=== PATIENT | female | born 1990 | race Caucasian/White ===

== ENCOUNTER 2017-07-05 13:39 | Emergency (ER) | END 2017-07-05 17:27 | disposition home or self-care (01) ==

== ENCOUNTER 2017-11-12 07:29 | Emergency (ER) | END 2017-11-12 09:38 | disposition home or self-care (01) ==

== ENCOUNTER 2018-05-02 23:49 | Inpatient (IN) | payer MEDICAID ==
[~2018-05-02] VITALS: Ht 152.4 cm; Wt 98.3 kg
[~2018-05-02 23:49] MED LIST: CEPH-443 PO; FER325 PO; PREN-39 PO
[2018-05-03] VITALS: Ht 152.4 cm; Wt 98.3 kg
[2018-05-03 00:04] VITALS: BP 130/83; PULSE 95; RESP 18
--- NOTE | 2018-05-03 00:43 | HP ---
Date/Time of Note Date/Time of Note DATE: 05/03/18 TIME: 00:42 OB - History Hx of Present Chief Complaint: Contractions and SROM Estimated Due Date: May 11, 2018 : 4 Para: 3 Spontaneous : 0 Therapeutic : 0 Care: Other (records not available) Ultrasounds: Other Obstetrical Complications: None Medical Complications: None Past Family/Social History * Past Medical, Surgical, Family and Obstetric Histories reviewed from chart. GBS Status: Negative OB Admission Exam Physical Exam HEENT: WNL Heart: Rhythm Normal Lungs: Clear, Equal Abdomen: WNL Extremities: Normal Reflexes: Normal Cervical Dilatation: 3cm Effacement: 75% Station: -1 Membranes: Ruptured Amniotic Fluid: Clear Heart Rate: 120's Accelerations: Accelerations Present Decelerations: No Decelerations Varibility: Moderate OB Assessment/Plan Reason for admission: active labor, rupture of membranes Plan: Expectant Management NU RUSSELL MD May 03, 2018 00:43
[2018-05-03] MEDS: LACTATED RINGER'S 1,000 ML IV SCH ×2 (00:44→02:07)
[2018-05-03] MEDS ORDERED: LACTATED RINGER'S 1,000 ML IV PRN (00:44)
[2018-05-03] MEDS ORDERED: BUTORPHANOL 2 MG INJ IV PRN (01:00)
[2018-05-03] MEDS ORDERED: MISOPROSTOL 200 MCG TAB PR PRN ×2 (01:00→08:30)
[2018-05-03] MEDS ORDERED: LIDOCAINE 1% (MPF) 30 ML INJ INJ PRN (01:00)
[2018-05-03] MEDS ORDERED: METHYLERGONOVINE 0.2 MG INJ IM PRN ×2 (01:00→08:30)
[2018-05-03] MEDS ORDERED: OXYTOCIN 30 UNITS/LR 500 ML IV PRN (01:00)
[2018-05-03] MEDS ORDERED: CARBOPROST 250 MCG INJ IM PRN ×2 (01:00→08:30)
[2018-05-03] MEDS ORDERED: IBUPROFEN 600 MG TAB PO PRN (01:00)
[2018-05-03] MEDS ORDERED: OXYTOCIN 30 UNITS/LR 500 ML IV SCH ×2 (01:00)
[2018-05-03] MEDS ORDERED: FENTAnyl 2MCG/ML-ROPIV 0.2% 100 ML ONE (01:47)
--- NOTE | 2018-05-03 02:21 | PREAC ---
Date/Time of Note Date/Time of Note DATE: 05/03/18 TIME: 02:20 Anesthesia Eval and Record Evaluation Time Pre-Procedure Interview DATE: 05/03/18 TIME: 02:20 Age 28 Sex female NPO: 8 hrs Preoperative diagnosis IUP Planned procedure L&D Past Medical History Past Medical History: None Surgery & Anesthesia Issues No known issue Meds Anticoagulation: No Beta Chris within 24 hr: No Reason Beta Chris not given: Pt. not on B-Chris Reported Medications Vits W-Ca,Fe,Fa(<1MG) ( Vitamins) 1 Tab Tablet, PO DAILY 02/26/11 Discontinued Reported Medications Ferrous Sulfate* (Ferrous Sulfate*) 325 Mg Tabec, 325 MG PO BID, TAB 10/23/15 Discontinued Scripts Cephalexin* (Keflex*) 500 Mg Capsule, 500 MG PO QID for 7 Days, CAP Prov:YASMINE SANCHEZ PA-C 11/12/17 Current Medications Lactated Ringer's 1,000 ml @ 125 mls/hr Q8H IV Last administered on 05/03/18at 02:07; Admin Dose 125 MLS/HR; Start 05/03/18 at 00:44 Butorphanol Tartrate (Stadol) 2 mg Q2H PRN IV PAIN; Start 05/03/18 at 01:00 Lidocaine (Xylocaine 1% (Mpf)) 30 ml ONCE PRN INJ DELIVERY; Start 05/03/18 at 01:00 Oxytocin/Lactated Ringer's 500 ml @ 500 mls/hr ONCE POST IV ; Start 05/03/18 at 01:00 Oxytocin/Lactated Ringer's 500 ml @ 125 mls/hr POST IV ; Start 05/03/18 at 01:00 Ibuprofen (Motrin) 600 mg ONCE PRN PO PAIN; Start 05/03/18 at 01:00 Lactated Ringer's 1,000 ml @ 2,000 mls/hr Q30M PRN IV EPIDURAL BOLUS Last administered on 05/03/18at 01:13; Admin Dose 2,000 MLS/HR; Start 05/03/18 at 00:44 Oxytocin/Lactated Ringer's 500 ml @ 0 mls/hr ONCE PRN IV PPH; Start 05/03/18 at 01:00 Methylergonovine Maleate (Methergine) 0.2 mg ONCE PRN IM PPH; Start 05/03/18 at 01:00 Carboprost Tromethamine (Hemabate) 250 mcg ONCE PRN IM PPH; Start 05/03/18 at 01:00 Misoprostol (Cytotec) 1,000 mcg ONCE PRN AK PPH; Start 05/03/18 at 01:00 Meds reviewed: Yes Allergies Coded Allergies: No Known Allergy (Unverified , 05/03/18) Allergies Reviewed: Yes Labs/Studies Labs Reviewed: Reviewed by anesthesiologist Result Diagram: 05/03/18 0100 Laboratory Tests 05/03/18 01:00 Blood Bank Test 05/03/18 01:00 Blood Type O POSITIVE Rh Immune Globulin Candidate NO test: Positive Studies: ECG Pre-procedure Exam Last vitals Vital Signs Date Temp Pulse Resp B/P (MAP) Pulse Ox O2 O2 Flow FiO2 Time Delivery Rate 05/03/18 98.3 95 18 130/83 Room Air 00:04 (99) Airway: Adequate mouth opening, Adequate thyromental dist Mallampati: Mallampati II Teeth: Normal Lung: Normal Heart: Normal ASA Physical Status ASA physical status: 2 Emergency: None Planned Anesthetic Neuraxial: Epidural Pre-operative Attestations Prior to commencing anesthesia and surgery, the patient was re-evaluated, there was verification of: *The patient's identity *The results of appropriate recent lab work and preoperative vital signs *The above evaluation not changing prior to induction *Anesthetic plan, risk benefits, alternative and complications discussed with patient/family; questions answered; patient/family understands, accepts and wishes to proceed. LAMBERTO MILLAN MD May 03, 2018 02:21
[2018-05-03] MEDS ORDERED: DIPHENHYDRAMINE 50 MG INJ IV PRN (02:30)
[2018-05-03] MEDS ORDERED: FENTAnyl 2MCG/ML-ROPIV 0.2% 100 ML BAG EPI SCH (02:30)
[2018-05-03] MEDS ORDERED: NALOXONE (0.4 MG/ML) INJ IV PRN (02:30)
[2018-05-03] MEDS ORDERED: ONDANSETRON 4 MG INJ IV PRN (02:30)
--- NOTE | 2018-05-03 02:53 | TRIAGE ---
OB Triage Datetime Report Generated by CPN: 05/03/2018 02:53 Datetime: 05/03/2018 02:30 Vaginal Exam Dilatation (cms): 8.0 Effacement (%): 100 Station: -1 Exam By: EM Vaginal Bleeding: Normal Show Cervix, Consistency: Soft Cervix, Position: Midposition Presentation 'A': Cephalic Datetime: 05/03/2018 01:28 Stage of : Labor Assessment Type: Admission Assessment Vaginal Bleeding: None Maternal Assessment Level of Consciousness: Fully Conscious DTR's/Clonus: DTRs 2+; No Clonus Headache: Denies Blurred Vision: No Respiratory Effort: Unlabored; Regular Rhythm; Equal Expansion Breath Sounds, Left: Clear and Equal Breath Sounds, Right: Clear and Equal Nausea/Vomiting: Denies RUQ Epigastric Pain: Denies Lower Extremities Edema: None Degree: None Upper Extremities Edema: None Degree: None Facial Edema: None Fall Risk Assessment History of Falling: (0) No Secondary Diagnosis: (0) No Ambulatory Aid: (0) Bedrest/Nurse Assist IV Therapy: (20) Yes Gait: (0) Normal/Bedrest/Immobile Mental Status: (0) Oriented to Own Ability Fall Score: 20 Fall Risk Score Definition: No Risk: No action required Labor Evaluation Frequency: 4-6 Duration (sec)2399: 60-90 Quality: Strong Pattern: Normal: <= 5 Contractions in 10 Minutes Resting Tone [place]: Relaxed Heart Rate FHR Baseline Rate: 145 Variability: Moderate 6-25 bpm Accelerations: 15X15 Decelerations: None Category: Category I Pain Assessment Pain Scale: 10 Pain Presence: Intermittent Pain Type: Contraction Pain Location: Abdomen Pain Goal: 4 Membrane Status: Ruptured Datetime: 05/03/2018 01:17 Labor Evaluation Frequency: 3-6 Monitor Mode: External Duration (sec)2399: 60-120 Quality: Moderate Pattern: Normal: <= 5 Contractions in 10 Minutes Resting Tone [place]: Relaxed Heart Rate FHR Baseline Rate: 145 Monitor Mode: External US Variability: Moderate 6-25 bpm Accelerations: 15X15 Decelerations: None Category: Category I Datetime: 05/03/2018 00:49 Monitor Mode: External US Datetime: 05/03/2018 00:30 Labor Evaluation Frequency: 3-6 Monitor Mode: External Duration (sec)2399: 70-130 Quality: Moderate Pattern: Normal: <= 5 Contractions in 10 Minutes Resting Tone [place]: Relaxed Heart Rate FHR Baseline Rate: 135 Monitor Mode: External US Variability: Moderate 6-25 bpm Accelerations: 15X15 Decelerations: None Category: Category I Datetime: 05/03/2018 00:29 Monitor Mode: External US Datetime: 05/03/2018 00:12 Time of Arrival: 05/03/2018 01:10 EGA: 38.6 Arrived By: Wheelchair Arrived From: Emergency Dept Datetime: 05/03/2018 00:08 Stage of : OB Triage Vaginal Exam Dilatation (cms): 3.0 Effacement (%): 70 Station: -2 Exam By: LAURO Wilson RN Membrane Status: Ruptured Membranes Rupture Method: Spontaneous Amniotic Fluid Color: Clear Amniotic Fluid Amount: Small Amniotic Fluid Odor: Normal Pool: Positive Cervix, Consistency: Soft Cervix, Position: Posterior Presentation 'A': Cephalic Datetime: 05/03/2018 00:04 Stage of : OB Triage Assessment Type: Triage Maternal Assessment Level of Consciousness: Fully Conscious DTR's/Clonus: DTRs 2+; No Clonus Headache: Denies Blurred Vision: No Respiratory Effort: Unlabored; Regular Rhythm; Equal Expansion Breath Sounds, Left: Clear and Equal Breath Sounds, Right: Clear and Equal Nausea/Vomiting: Denies RUQ Epigastric Pain: Denies Lower Extremities Edema: None Degree: None Upper Extremities Edema: None Degree: None Facial Edema: None Temperature Route: Oral Fall Risk Assessment History of Falling: (0) No Secondary Diagnosis: (0) No Ambulatory Aid: (0) Bedrest/Nurse Assist IV Therapy: (0) No Gait: (0) Normal/Bedrest/Immobile Mental Status: (0) Oriented to Own Ability Fall Score: 0 Fall Risk Score Definition: No Risk: No action required Pain Assessment Pain Scale: 10 Pain Presence: Intermittent Pain Type: Contraction; Pressure Pain Location: Abdomen; Back; Perineum Pain Goal: 2 Pain Relief Measures: Comfort Measures Datetime: 05/02/2018 23:46 Time of Arrival: 05/02/2018 23:46 Arrived By: Wheelchair Arrived From: Emergency Dept Chief Complaint: UC, pain 01/18, SROM @ 2330 Movement: Present Contractions: Regular Time Contractions Began: 05/02/2018 17:00 Contractions: 3-5 minutes Rupture of Membranes: Ruptured Vaginal Bleeding: Normal Show Vaginal Discharge: Present Recent Sexual Intercouse: Denies Abdominal Trauma: Not Applicable Patient Complaints: Contractions Time Provider Notified: 05/03/2018 00:20 Provider Notified: DREW Initial Plan: ANKITA CALLEJAS
--- NOTE | 2018-05-03 06:06 | LDN ---
Date/Time of Note Date/Time of Note DATE: 05/03/18 TIME: 06:04 Delivery Summary Weeks of Gestation 38 weeks and 6 days Placenta Delivered: Spontaneously Meconium: none Episiotomy: No Perineal laceration: 0 Anesthesia type: Epidural Estimated blood loss: 150 Sponge & Needle done & correct: Yes All needle counts correct: Yes Any foreign bodies felt in the: No Infant Delivery Information Sex Sex: male Apgars 1 Minute: 8 5 Minute: 9 Suctioning Nose & mouth suctioned at roxana: Yes Delee suction performed: No Umbilical Cord Umbilical cord with: 3 Vessels Cord presentations: nuchal cord Nuchal cord present X: 1 Cord Blood was obtained: Yes Mother & Baby Disposition Disposition Mom & Baby to Maternity; Good: Yes NU RUSSELL MD May 03, 2018 06:06
[2018-05-03 07:45] VITALS: BP 106/57; PULSE 100; RESP 18
--- NOTE | 2018-05-03 07:45 | NUR ---
ORIENTATED TO ROOM AND FLOOR POLICIES. PATIENT DOES UNDERSTAND SOME SCOTTISH. ADVISED THAT IF SHE DOES NOT UNDERSTAND SOMETHING THAT I SAY WE WILL BRING IN THE TRNASLATER
[2018-05-03] MEDS ORDERED: ACETAMINOPHEN 325 MG TAB PO PRN (08:30)
[2018-05-03] MEDS ORDERED: HYDROCODONE/APAP (5/325) TAB PO PRN (08:30)
[2018-05-03] MEDS ORDERED: WITCH HAZEL/GLYCERIN PAD PR PRN (08:30)
[2018-05-03] MEDS: SENNA/DOCUSATE NA (8.6MG/50MG) TAB PO SCH ×2 (09:16→21:13)
[2018-05-03] MEDS: LACTATED RINGER'S 1,000 ML IV* SCH ×2 (10:06→19:00)
--- NOTE | 2018-05-03 10:30 | NUR ---
UP TO VOID 600CC. IJEOMA CARE DONE , PADS AND TUCKS APPLIED
[2018-05-03 12:00] VITALS: BP 110/66; PULSE 88; RESP 18
[2018-05-03] MEDS: IBUPROFEN 600 MG TAB PO SCH ×2 (12:43→17:36)
[2018-05-03 16:20] VITALS: BP 101/56; PULSE 90; RESP 18
--- NOTE | 2018-05-03 18:00 | NUR ---
EOSS; CONDITION IS STABLE. IV INFUSED AND DISCONTINUED. VOIDING IN GOOD AMOUNTS, FUNDUS IS FIRM NO EXCESSIVE BLEEDING. MOTRIN EFFECTIVE FOR PAIN RELIEF. BONDING WELL WITH BABY AND FAMILY
--- NOTE | 2018-05-03 19:24 | NUR ---
CONTINUE TO DO ACCUCKECKS AC AND HS
[2018-05-03 19:48] VITALS: BP 108/59; PULSE 87; RESP 18
[2018-05-04] MEDS: IBUPROFEN 600 MG TAB PO SCH ×5 (00:09→23:19)
[2018-05-04 04:23] VITALS: BP 102/59; PULSE 92; RESP 18
--- NOTE | 2018-05-04 05:12 | NUR ---
EOSS: VITAL SIGNS STABLE. NO ACUTE DISTRESS. AMBULATING AND VOIDING WELL. FUNDUS IS FIRM. WELL WITH GOOD LATCH. CBC FOR TODAY IN AM. BONDING WELL WITH BABY.
[2018-05-04 07:30] VITALS: BP 84/47; PULSE 80; RESP 18
[2018-05-04] MEDS: SENNA/DOCUSATE NA (8.6MG/50MG) TAB PO SCH ×2 (08:25→20:46)
[2018-05-04] MEDS ORDERED: LANOLIN HPA 1 PKT TOP PRN (08:30)
--- NOTE | 2018-05-04 12:36 | PN ---
Date/Time of Note Date/Time of Note DATE: 05/04/18 TIME: 12:34 OB Subjective Subjective Subjective Patient complains of discomfort in the pole and breast-feeding. Denies any f ever or chills. Denies any erythema. Denies any bleeding from the nipple. Vaginal bleeding decreased. Denies any other complaint. OB Objective Objective Objective Appearance: Alert and oriented x4 does not appear to be in any acute distress Abdomen: Soft, fundus firm and palpable below the umbilicus and nontender Breast: No evidence of mastitis or fissure. Extremities: No calf tenderness, no click no edema Hemoglobin A1c: 5.7 Laboratory Tests Test 05/03/18 01:00 05/03/18 18:07 05/03/18 21:58 05/04/18 06:30 White Blood 10.9 10^3/ul 13.1 10^3/ul Count Red Blood Count 4.88 10^6/ul 4.08 10^6/ul Hemoglobin 11.8 g/dl 10.0 g/dl Hematocrit 36.9 % 32.2 % Mean Corpuscular 75.6 fl 78.9 fl Volume Mean Corpuscular 24.2 pg 24.5 pg Hemoglobin Mean Corpuscular 32.0 g/dl 31.1 g/dl Hemoglobin Bisi nt Red Cell 14.1 % 14.5 % Distribution Width Platelet Count 245 10^3/UL 225 10^3/UL Mean Platelet 10.7 fl 10.6 fl Volume Immature 0.500 % 0.800 % Granulocytes % Neutrophils % 69.8 % 63.4 % Lymphocytes % 20.4 % 27.2 % Monocytes % 7.6 % 6.3 % Eosinophils % 1.5 % 2.0 % Basophils % 0.2 % 0.3 % Nucleated Red 0.0 /100WBC 0.0 /100WBC Blood Cells % Immature 0.060 10^3/ul 0.110 10^3/ul Granulocytes # Neutrophils # 7.6 10^3/ul 8.3 10^3/ul Lymphocytes # 2.2 10^3/ul 3.6 10^3/ul Monocytes # 0.8 10^3/ul 0.8 10^3/ul Eosinophils # 0.2 10^3/ul 0.3 10^3/ul Basophils # 0.0 10^3/ul 0.0 10^3/ul Nucleated Red 0.0 10^3/ul 0.0 10^3/ul Blood Cells # Prothrombin Time 11.7 Sec Prothrombin Time 0.9 Ratio INR 0.85 International Normalized Ratio Activated 25.8 Sec Partial Thrombop last Time Glucose Level 95 mg/dl Rapid Plasma NONREACTIVE Reagin Hepatitis B NEGATIVE Surface Antigen Bedside Glucose 110 mg/dL 108 mg/dL Hemoglobin A1c 5.7 % Test 05/04/18 06:43 05/04/18 08:23 Lab Scanned REFERENCE Report LAB [id number] Bedside Glucose 80 mg/dL OB Assessment/Plan Other Assessment: status post day #1 Doing well Mild anemia, asymptomatic, Hemoglobin A1c within normal limits. Blood sugars in normal range. can stop blood sugar monitoring Anticipate DC home tomorrow Follow-up at 6 weeks after discharge from the hospital with primary OB If had a GDM, needs to repeat glucose tolerance test 75 mg at 6 weeks . Routine care FANY LUCIA MD May 04, 2018 12:36
[2018-05-04 16:08] VITALS: BP 110/64; PULSE 101; RESP 18
--- NOTE | 2018-05-04 17:51 | NUR ---
EOSS: VSS. AMBULATING AND VOIDING. SHOWERED TODAY. BREAST FEEDING WELL. GOOD BONDING SEEN WITH THE BABY.
[2018-05-04 20:15] VITALS: BP 123/66; PULSE 91; RESP 18
[2018-05-05 04:00] VITALS: BP 100/59; PULSE 88; RESP 18
--- NOTE | 2018-05-05 05:15 | NUR ---
EOSS: VITALS SIGNS STABLE. AMBULATING WELL. FUNDUS FIRM. BONDING WELL WITH BABY.
[2018-05-05] MEDS: IBUPROFEN 600 MG TAB PO SCH ×2 (05:59→11:20)
[2018-05-05 07:50] VITALS: BP 113/77; PULSE 75; RESP 18
[2018-05-05] MEDS ORDERED: DIPHTH/TET/ACEL PERTUSS (ADULT) 0.5 ML VIAL IM* ONE (09:00)
[2018-05-05] MEDS: SENNA/DOCUSATE NA (8.6MG/50MG) TAB PO SCH (09:12)
--- NOTE | 2018-05-05 12:57 | DS ---
Date/Time of Note Date/Time of Note DATE: 05/05/18 TIME: 12:55 Obstetrical Discharge Record Final Diagnosis Final Diagnosis: Term delivered Vaginal Delivery Obstetrical Delivery: Spontaneous Complications Augmentation: No Induction: No Rupture of Membranes: No Condition on Discharge Physical Assessment Last Vitals: VSS afebrile Voiding: Yes Bowel Movement: Yes Breast: Soft, non-tender Fundus: Firm Abdomen and Incision: n/a Episiotomy: n/a Calf Tenderness: No Patient Condition: Stable MOISÉS OBRIEN MD May 05, 2018 12:57
--- NOTE | 2018-05-05 12:59 | PD.PPDC ---
SALES SUPPORT ENGINEER Discharge Instruction Diagnosis [id number] Final Diagnosis: [id number] s/p Condition [id number] Patient Condition: Pchlw5f Stable Diet [id number] Diet: Flmem5z Resume Regular Diet Activity/Restrictions [id number] Activity: [id number] May Shower Idhzs2In Restrictions: [id number] No Lifting No Sexual Activity Nothing in the Vagina No [place] No Tampons, douche Follow-up Follow-up with Physician: 2, Week/Weeks Return to clinic for [id number] WARRANT CLERK Instructions: [id number] Fever greater than 101 Chills Worsening abdominal pain Excessive Vaginal Bleeding More than 2 pads per hour Unable to tolerate diet Nmiem3Yo OB Instructions: Jryln4n Breast Tenderness Depression Blurried Vision Headache MOISÉS OBRIEN MD May 05, 2018 12:59
--- NOTE | 2018-05-05 14:00 | NUR ---
Diabetes Education Referral: Pt's BG has no been over 110 mg/dl this admission. Pt denies having GDM during her other pregnancies or being told she had GDM this . After reviewing prenatals, pt's history and current BG I feel the value of an HbA1c of 12% was incorrect. On the same day as the HbA1c was drawn, the 1 hr OGTT was 88 mg/dl.
--- NOTE | 2018-05-05 15:13 | NUR ---
PT DC'D HOME IN STABLE COND WITH BABY VIA WHEELCHAIR. DISCHARGE INST GIVEN AND ALL QUESTIONS ANSWERED AND PT VERBALIZED UNDERSTANDING OF ALL INFO GIVEN. Addendum: 05/05/18 at 1514 by CORY GRESHAM RN Amended: Links added.
== END 2018-05-05 14:55 | disposition home or self-care (01) | DRG 807 ==
LOC: L-D 23:49 → OBT 23:49 → L-D 05-03 01:10 → OBT 05-03 01:10 → PP1 05-03 07:36
PROVIDERS: ADMIT Obstetrics & Gynecology; ATTEND Obstetrics & Gynecology
PROC: 10E0XZZ Delivery of Products of Conception, External Approach (ICD-10-PCS; principal; 2018-05-03)
DX: O69.81X0 Labor and delivery complicated by cord around neck, without compression, not applicable or unspecified (principal); Z37.0 Single live birth; Z3A.38 38 weeks gestation of pregnancy
CPT/HCPCS: 62319; 82947; 82962; 83036; 85025; 85610; 85730; 86592; 86850; 86900; 86901; 87340; G0463; J2405; J2590; J3010; J7120